=== PATIENT | female | born 2000 | race Caucasian/White ===

== ENCOUNTER 2021-10-06 09:04 | Emergency (ER) | payer OTHER, SELFPAY ==
[2021-10-06 09:10] VITALS: BP 136/69; PULSE 103; RESP 18; TEMP 36.8; O2SAT 100
--- NOTE | 2021-10-06 09:19 | ED.GENADULT ---
HPI - General Adult General Chief complaint: Upper Respiratory Infection Stated complaint: Fever/Congestion Source: patient Mode of arrival: ambulatory Limitations: no limitations History of Present Illness HPI narrative: Patient presents for evaluation of sick symptoms for the last 3 days. Symptoms include fever, chills, sinus congestion, sore throat, productive cough of clear sputum, nausea, vomiting and body aches. She has been taking tylenol and ibuprofen for her symptoms. Ibuprofen seems to help. Her mother had COVID three weeks ago. She took a home COVID test yesterday which was negative. Pt had COVID in May of this year despite receiving COVID vaccination and booster.; Related Data Home Medications Medication Instructions Recorded Confirmed norgestimate 0.25 mg-ethinyl tablet 10/06/21 estradiol 35 mcg tablet (Tamy) Allergies Allergy/AdvReac Type Severity Reaction Status Date / Time No Known Allergies Allergy Unknown Verified 10/06/21 09:56 Review of Systems Review of Systems: CONSTITUTIONAL: Reports fever and chills EYES: Denies visual changes, redness, or discharge. ENT: Reports sinus congestion and sore throat. Denies otalgia CARDIOVASCULAR: Denies chest pain, palpitations, or edema. RESPIRATORY: Reports productive cough of clear sputum. Denies SOB. GASTROINTESTINAL: Reports nausea and vomiting. Denies abdominal pain and diarrhea. GENITOURINARY: Denies dysuria or hematuria. SKIN: Denies rash or itching. MUSCULOSKELETAL: Reports body aches NEUROLOGIC: Denies headache, numbness, dizziness, or weakness. PSYCHIATRIC: Denies anxiety or depression. FOR[facility], [facility] Past Medical History Medical History (Updated 10/06/21 @ 10:02 by ARNULFO Hoffman, ) No pertinent past medical history Surgical History Surgical History History of repair of pyloric stenosis Family History Family History Mother Multiple sclerosis Social History Social History Smoking status: Current every day smoker Tobacco type: e-cigarettes/vaping Substance use: never Living arrangements: with family Gender identity (if verbalized by the patient): Female Exam Narrative: GENERAL: Well-appearing, well-nourished, and in no acute distress. HEAD: Normocephalic, atraumatic. EYES: PERRLA and EOMI. ENT: Nares clear, no rhinorrhea or epistaxis. Mucous membranes moist. Oropharynx without tonsillar hypertrophy exudate or other lesions. There is posterior pharyngeal erythema. Bilateral TMs pearly truong nonbulging NECK: Supple. No adenopathy or masses. No carotid bruits or JVD CHEST: Clear to auscultation. No respiratory distress. No wheezes rales or rhonchi HEART: Regular rate and rhythm. No murmur heard. Normal peripheral pulses. ABDOMEN: Soft, nontender, nondistended, normal active bowel sounds. EXTREMITIES: Normal range of motion. No edema. SKIN: Warm, dry, no rash. NEURO: No focal deficits. Alert and oriented x3. PSYCH: Normal mood and affect. Course Course Emergency Course: This is a 20-year-old female who presented with complaints of sick symptoms. Strep and COVID were negative. Influenza a positive.. Will dc with tamiflu. Increase hydration. OTC agents for symptom management. She should follow up outpatient for further evaluation and treatment and return for worsening symptoms. Pt in agreement with plan of care. Level of Care: Express Care Visit Vital Signs Vital signs: Vital Signs Temperature 36.8 C 10/06/21 09:10 Pulse Rate 103 H 10/06/21 09:10 Respiratory Rate 18 10/06/21 09:10 Blood Pressure 136/69 10/06/21 09:10 Pulse Oximetry 100 10/06/21 09:10 Oxygen Delivery Room Air 10/06/21 09:10 Temperature 36.8 C 10/06/21 09:10 Pulse Rate 103 H 10/06/21 09:10 Respiratory Rate 18 10/06/21 09:10
== END 2021-10-06 10:07 | disposition home or self-care (01) ==
PROVIDERS: Emergency Provider Nurse Practitioner
DX: J10.1 Influenza due to other identified influenza virus with other respiratory manifestations (principal); Z20.822 Contact with and (suspected) exposure to COVID-19; F17.290 Nicotine dependence, other tobacco product, uncomplicated; Z86.16 Personal history of COVID-19
CPT/HCPCS: 87081; 87426; 87804; 87880; 99203; C9803; G0463

== ENCOUNTER 2022-07-28 09:13 | Emergency (ER) | payer OTHER, SELFPAY ==
[2022-07-28 09:44] VITALS: BP 128/78; PULSE 86; RESP 20; TEMP 37.1; O2SAT 100
--- NOTE | 2022-07-28 10:19 | ED.URI ---
HPI - URI/Sore Throat General Chief Complaint: Upper Respiratory Infection Stated Complaint: throat chest and drainage Time Seen by Provider: 07/28/22 10:19 Source: patient and RN notes reviewed Mode of arrival: ambulatory Limitations: no limitations History of Present Illness HPI Narrative: 21-year-old female presents with concern for to 3 day history of postnasal drainage, runny nose, sore throat, chest congestion with only mild cough. 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 She denies taking any [id number] medications for her symptoms. She reports she started feeling worse overnight. She reports her sister had cold symptoms MD elicited complaint: sore throat Related Data Home Medications Medication Instructions Recorded Confirmed norgestimate 0.25 mg-ethinyl tablet 10/06/21 estradiol 35 mcg tablet (Tamy) Allergies Allergy/AdvReac Type Severity Reaction Status Date / Time No Known Allergies Allergy Unknown Verified 10/06/21 09:56 Review of Systems Review of Systems: CONSTITUTIONAL: Reports malaise. Denies chills, sweats, or fever. EYES: Denies visual changes, redness, or discharge. ENT: Reports rhinorrhea, congestion, sore throat. Denies sinus pain, otalgia CARDIOVASCULAR: Denies chest pain, palpitations, or edema. RESPIRATORY: Reports mild cough and chest congestion. Denies dyspnea. GASTROINTESTINAL: Denies abdominal pain, nausea, vomiting, diarrhea SKIN: Denies rash or itching. MUSCULOSKELETAL: Denies myalgia. NEUROLOGIC: Denies headache. All systems reviewed & are unremarkable except as noted in HPI and below PMFSH Past Medical History Medical History (Updated 07/28/22 @ 10:50 by Koki Diaz NP) No pertinent past medical history Surgical History Surgical History History of repair of pyloric stenosis Family History Family History Mother Multiple sclerosis Social History Social History Smoking status: Current every day smoker Tobacco type: e-cigarettes/vaping Substance use: never Living arrangements: with family Gender identity (if verbalized by the patient): Female Comments At time of signature, agree with nursing past medical, surgical, social and family history. There is no relevant family history pertinent to the presenting complaint Exam Narrative: GENERAL: Well-appearing, well-nourished, and in no acute distress. HEAD: Normocephalic EYES: PERRLA, conjunctivae clear ENT: Nares clear, turbinates edematous and erythematous, clear discharge. Mucous membranes moist. TM pearly truong with dull light reflex bilaterally; no tragal tenderness. Oropharynx erythematous without lesions. Tonsils not enlarged and without exudate, no drooling, no hoarseness, no trismus, uvula midline. NECK: Supple. No lymphadenopathy CHEST: Clear to auscultation, breath sounds equal. No wheezing, rhonchi, rales, or stridor. No respiratory distress, speaks in full sentences. HEART: Regular rate and rhythm. No murmur heard. SKIN: Warm, dry, no rash. NEURO: Alert and oriented x3. PSYCH: Normal mood and affect Course Course Emergency Course: Patient is aware of diagnosis, understands and agrees to treatment plan. Anticipatory guidance given. Patient agrees to follow-up as directed and is aware of reasons to seek care at the emergency department. Portions of this record may have been created with voice recognition software Level of Care: Express Care Visit Vital Signs Vital signs: Vital Signs Temperature 98.8 F 07/28/22 09:44 Pulse Rate 86 07/28/22 09:44 Respiratory Rate 20 07/28/22 09:44 Blood Pressure 128/78 07/28/22 09:44 Pulse Oximetry 100 07/28/22 09:44 Oxygen Delivery Room Air 07/28/22 09:44 Temperature 98.8 F 07/28/22 09:44 Pulse Rate 86 07/28/22 09:44 Respi
== END 2022-07-28 10:57 | disposition home or self-care (01) ==
PROVIDERS: Emergency Provider Nurse Practitioner; PCP Hospitalist
DX: J06.9 Acute upper respiratory infection, unspecified (principal); Z20.822 Contact with and (suspected) exposure to COVID-19; F17.290 Nicotine dependence, other tobacco product, uncomplicated
CPT/HCPCS: 87081; 87426; 87880; 99213; C9803; G0463